=== PATIENT | female | born 1950 | race Caucasian/White ===

== ENCOUNTER 2019-04-02 12:34 | Inpatient (IN) | payer OTHER, MEDICARE ==
[~2019-04-02] VITALS: Ht 160 cm; Wt 58.7 kg
--- NOTE | ~2019-04-02 | D ---
[facility] [place] [address] DISCHARGE SUMMARY Name: DEBBIE SETHI Room #: 52-A [facility] IN M.R.#: [id number] Admission: 04/02/19 Attend Phys: Zuhair Lima DO Discharge: 04/12/19 Date of : 52 Report #: [id number] THIS REPORT FOR: //name// CC: Zuhair Lima Cedric Box DATE OF SERVICE: 04/12/2019 INPATIENT PSYCHIATRIC DISCHARGE SUMMARY ATTENDING PHYSICIAN: Zuhair Lima DO. HOME SUPPORT WORKER AT THE TIME OF DISCHARGE: Renzo Garnett MD DISCHARGE DIAGNOSES: Major neurocognitive disorder, most likely due to Alzheimer's disease with behavioral disturbance, improved. Other comorbidities, the patient has chronic low back pain, hypertension, hyperlipidemia, hypothyroidism, chronic tobacco use. Discharged to [facility] for memory care. Psychiatric and medical care to be provided by the receiving facility. ACTIVITY LEVEL: As tolerated. The patient requires 24/7 assistance and supervision due to her dementia. LABORATORY DATA ON THIS ADMISSION: As follows: CBC on 04/02/2019 was within normal limits except for platelet count slightly high at 48. Chemistries this admission on 04/03/2019 included B12 of 395, vitamin D 42.6. TSH ____. Folate 14.1. IMAGING: Done this admission ____ CT done on . Findings were significant for chronic ischemic changes. Chest x-ray done on showed a right basilar nodular opacity. The patient started this admission on memantine. We did initiate titration, elected to bump it up to 10 mg twice a day. OTHER DISCHARGE MEDICATIONS: Include vitamin B12 500 mcg p.o. daily, fenofibrate 160 mg p.o. daily, vitamin D 5000 International Units a day, Protonix 40 mg daily, levothyroxine 50 mcg daily, atorvastatin 40 mg p.o. at bedtime. Otherwise, no other scheduled medications. REASON FOR ADMISSION: Back on 04/02/2019 was as follows: I had received the patient from the Emergency Room at [facility]. Apparently, he presented to the ED requesting medical clearance for psychiatric admission. Increased confusion has been noted, medical noncompliance. He had seen by PCP who recommended Geriatric Psychiatry admission. [address] [address] DISCHARGE SUMMARY Name: DEBBIE SETHI Room #: 521A-A [facility] IN ..#: [id number] Admission: 04/02/19 Attend Phys: Zuhair Lima DO Discharge: 04/12/19 Date of : 52 Report #: [id number] HOSPITAL COURSE: The patient was admitted to Geriatric Psychiatry care unit. The patient showed some initial resistance to the program; however, ____ but clearly had evidence of cognitive dysfunction. Her SLUMS score was an 8/30. We had a couple of family meetings during the admission. considered placement. CONDITION AT DISCHARGE: Stable, not suicidal, not homicidal. MENTAL STATUS EXAMINATION: VITAL SIGNS: ____, pulse rate of 70, respirations 19, BP 146/76, O2 sat 95%. MUSCULOSKELETAL: Normal gait and station. MENTAL STATUS EXAMINATION: This is a well-developed, well-nourished female appearing stated age. Attention limited. Concentration limited. Speech is normal rate. Thought processes linear and goal directed. Thought content focused on where she is going next, ____ there was some confusion ____ is involved and I told the patient the real name of the [facility] and somehow she thought she was ____ before she was sent from [facility]. My social director ____ the patient, but I certainly do not have record ____ as it is very important she had consistent housing and programming in memory care environment. Prognosis for this patient is guarded. ____. Attention intact. Concentration limited. Speech is normal rate. Thought process is linear and goal directed. Thought content focused on discharge, no psychomotor agitation, no ____ retardation. Mood and affect congruent, constricted. By: 225 Zuhair Lima, DO /nt
[~2019-04-02 12:34] MED LIST: ALLEGRA-D 12 H1 EAC1 PO; AMITRIPTYLINE PO; AMLODIPINE BESYL5 MG PO; COLACE 100 MG100 MG PO; FAMCICLOVIR250 MG PO; FENOFIBRATE130 MG PO; GAVILAX17 GM PO; LASIX 20 MG TAB20 MG PO; MOM PO; NEXIUM40 MG PO; NICOTINE TRANSD14 M1 TRANSDERM; NORCO 10-325 T1 EACH PO; NYSTATIN 1100000 U/M SW&SWALLOW; OXYCONTIN40 MG PO; PRAVACHOL80 MG PO; PREDNISONE 10 M10 M1; PREMARIN0.625 MG PO; PROVIGIL 200 M200 M1 PO; SENNA PO; SENOKOT-S1 TA1 PO; ZOLOFT 50 MG TA50 M1 PO; ZOLOFT100 MG PO
[2019-04-02 12:36] VITALS: BP 155/79
[2019-04-02 13:14] LABS: URINE BILIRUBIN NEGATIVE (Negative); URINE BLOOD NEGATIVE (Negative); URINE CLARITY CLEAR; URINE COLOR YELLOW; URINE GLUCOSE-RANDOM* NEGATIVE (Negative); URINE KETONES NEGATIVE (Negative); URINE LEUKOCYTES-REFLEX TRACE (Negative); URINE NITRITE-REFLEX NEGATIVE (Negative); URINE PROTEIN (DIPSTICK) NEGATIVE (Negative); URINE SPECIFIC GRAVITY 1.015 (1.005-1.035); URINE UROBILINOGEN 0.2 E.U./dl (0.2-1.0)
[2019-04-02 13:19] LABS: ABSOLUTE NEUTROPHILS 6.4 thou/uL (1.4-8.2); EOSINOPHILS 1.1 % (0.0-3.0); HEMATOCRIT 40.3 % (37.0-47.0); HEMOGLOBIN 12.7 gm/dL (12.0-15.0); LYMPHOCYTES 31.3 % (24.0-44.0); MCH 23.4 pg (26.0-34.0); MCHC 31.4 g/dL (28.0-37.0); MCV 74.5 fL (80.0-100.0); MONOCYTES 3.8 % (1.0-8.0); PLATELET COUNT 488 thou/uL (150-400); POLYS 62.8 % (36.0-66.0); RBC 5.41 mil/uL (4.20-5.00); RDW 18.1 % (10.5-14.5); WBC 10.2 thou/uL (4.0-11.0)
[2019-04-02 13:33] LABS: CALCIUM 10.6 mg/dL (8.5-10.1); CREATININE 0.9 mg/dL (0.6-1.0); POTASSIUM 3.6 mmol/L (3.5-5.1)
[2019-04-02 13:40] LABS: DIRECT BILIRUBIN 0.1 mg/dL (<0.1-0.2); TOTAL BILIRUBIN 0.4 mg/dL (<0.1-1.0); TOTAL PROTEIN 9.6 g/dL (6.4-8.2)
[2019-04-02 14:26] LABS: ANISOCYTOSIS 1+; HYPOCHROMASIA 1+; OVALOCYTES OCCASIONAL
[2019-04-02 14:33] VITALS: BP 163/73
[2019-04-02 15:35] VITALS: BP 127/60
--- NOTE | 2019-04-02 15:36 | NUR ---
68 YEAR OLD FEMALE ADMITTED VIA CART FROM ER-ACCOMPNIED BY DAUGHTER MELISSA SETHI. TO ER TODAY WITH REPORTED INCREASED AGITATION AND ERRATIC BEHAVIOR AT HOME PER DAUGHTER REPORT. DAUGHTER LIVES NEXT DOOR TO PT AND APPROX 1 MTH AGO BECAME SUSPICOUS OF DAUGHTER,MOOD SWINGS AND PARANOID THINKING PEOPLE ARE SPYING ON HER. RECENTLY PLACED IN FACILITY WITH MEDICAL ISSUES SO PT IS UNUSED TO LIVING ALONS. DAUGHTER AND OP MD SUSPECT PT OVERTAKING HYDROCODNE AND DAUGHTER HAS BEEN GIVING MEDS FOR APPROX 2-3 WEEKS. PT DOES REPORT BACK PAIN RATED A 10 ON 1-10 SCALE ON ADMIT. ORIENTED TO PERSON,PLACE NO TO DATE-VERY TEARFUL ON DAUGHTERS DEPARTURE AND HAS LIMITED INSIGHT INTO FACTORS LEADING TO ADMIT REPEATING "I DON'T UNDERSTAND WHY I'M HERE-I DON'T KNOW WHAT IS GOING ON.......' NO SKIN BREAKDOWN NOTED. GAIT STEADY WITHOUT ASSISTIVE DEVICES
[2019-04-02] MEDS ORDERED: BYSTOLIC10 MG PO (15:48)
[2019-04-02] MEDS ORDERED: LEVO-T50 MCG PO (15:49)
[2019-04-02] MEDS ORDERED: LASIX 40 MG TAB40 MG PO (15:50)
[2019-04-02] MEDS ORDERED: XANAX 0.5 MG0.5 M1 PO (15:51)
[2019-04-02] MEDS ORDERED: PRAVACHOL40 MG PO (15:53)
[2019-04-02] MEDS ORDERED: OMEPRAZOLE40 MG PO (15:54)
[2019-04-02] MEDS ORDERED: ERGOCAL2500 UNIT PO (15:57)
[2019-04-02 19:33] VITALS: BP 102/48
--- NOTE | 2019-04-03 01:41 | NUR ---
ASSESSMENT: PT REMAIN ALERT AND ORIENT TIMES THREE. FOLLOWING POC. STATE THAT NARCO IS HELPING HER CHRONIC BACK PAIN. HAS NOT CALLED FOR PAIN MEDS UP TO THIS POINT. VSS, AFEBRILE. UP WITH A STEADY GAIT. NO S/S OF PARANOA PRESENT. SLOW PROGRESS TOWARDS DC GOALS, WILL CONTINUE TO MONITOR.
[2019-04-03 02:20] VITALS: BP 116/58
--- NOTE | 2019-04-03 03:01 | NUR ---
ASSESSMENT: AT APPROXIMARELY 0211 PT WOKE UP STATING THAT SHE FELT NAUSEOUS AND REALLY DIZZY. PT ALSO C/O BACK PAIN. VSS, BS WAS 114 SATS WERE 93%. MARTA SANTIAGO WAS NOTIFIED. ORDERS GIVEN. AFTER ABOUT 45 MINS PT BEGAN TO FEEL BETTER AND THE DIZZINESS WAS BEGINNING TO SUBSIDE. PT IS ASLEEP AT 0330. UA PENDING. LABS PENDING. WILL CONTINUE TO MONITOR.
--- NOTE | 2019-04-03 08:48 | NUR ---
Sw spoke with [facility] intake assessment and d/c plans. She reported that her father lives in her home right now because he has stage 4 cancer and needs more help. Pt has been living alone and now the home is unliveable for at least the next 3-4 months. [facility] has a construction business and they will be doing the repairs. But they are lookignf or guidance regarding the safety of pt return to independent living. Set up a family meeting for 04/06/19 at 11;45 am. Pt has not been completing her ADL's and has been non compliant with recomedations
[2019-04-03 09:12] VITALS: BP 108/72
[2019-04-03 10:48] VITALS: BP 108/72
--- NOTE | 2019-04-03 11:02 | NUR ---
5103 Report received from overnight shift, patient this morning complained of being dizzy. I used a wheel care for transport to day room for breakfast, patient took medication without incidence. Patient quiet cooperative, not interacting with other patient's. Dr. Lima wanted [facility] blood pressures to monitor dizziness. Will continue to monitor patient.
[2019-04-03 14:02] LABS: FOLIC ACID 14.1 ng/mL (8.6-58.9)
[2019-04-03 16:34] LABS: AMP/METHAMP Negative (Negative); BARBITURATES Negative (Negative); BENZODIAZEPINES Negative (Negative); COCAINE Negative (Negative); METHADONE Negative (Negative); OPIATES POSITIVE (Negative); PCP Negative (Negative)
[2019-04-03 19:41] VITALS: BP 104/49
[2019-04-04 02:27] VITALS: BP 104/49
--- NOTE | 2019-04-04 03:52 | NUR ---
PT QUIET AND ON THE EDGE OF THE GROUP. INTERACTING WITH SELECT FEMALE PEER. TOOK HS MED AFTER SNACK AND WENT TO BED. CONFUSED TO WHERE HER ROOM WAS, AND NEEDED REMINDER, AND WAS ESCORTED TO ROOM. HAS SLEPT WELL THROUGH THE NIGHT.
--- NOTE | 2019-04-04 08:00 | NUR ---
PT SITTING IN ROOM. PT SEEMS UPSET. PT DIDN'T KNOW WHY SHE IS HERE. THIS ENGINEER GAS PUMPING STATION STATED THAT SHE HAD AN ALTERATION WITH HER DAUGHTER. PT STATED WHAT DID SHE DO, ASKED PT IF HER WAS SICK, PT STATED NO HE WASN'T AND SHE WANTED TO BE ABLE TO TALK TO HIM.
[2019-04-04 08:06] VITALS: BP 128/66; BP 138/80
[2019-04-04 08:10] VITALS: BP 128/66
--- NOTE | 2019-04-04 11:47 | NUR ---
ADM HYDROCODONE 5MG FOR BACK PAIN OF 8 ON 1-10 SCALE, PT IN ROOM.
--- NOTE | 2019-04-04 16:20 | NUR ---
PT WANTING TO HAVE NORCO, TOLD PT SHE HAD ALREADY TODAY. NOT TIL 6 HRS. PT STATED HER BACK IS HURTING.
--- NOTE | 2019-04-04 18:20 | NUR ---
PT RECIEVED HYDROCODONE 5MG PO FOR COMPLAINTS OF BACK PAIN. PT SITTING OUT IN DINNING ROOM SOCIALIZING WITH STAFF.
[2019-04-04 20:00] VITALS: BP 147/60
[2019-04-04 20:08] LABS: SYPHILIS AB Non Reactive (Non Reactive)
[2019-04-04 21:45] VITALS: BP 147/60
--- NOTE | 2019-04-04 23:01 | NUR ---
PATIENT WAS UP IN DINING ROOM [facility]. SHE TOOK HER HS MEDS WHOLE. SHE ASKED AT 1930 WHEN SHE COULD HAVE HER NEXT PAIN PILL. SHE HAD JUST HAD HYDROCODONE AT 1830. SHE STATES SHE HAS PAIN IN LOWER BACK BUT IS GRADUALLY GOING AWAY. PATIENT WENT TO HER ROOM FOR AWHILE AND CAME BACK OUT AROUND 2129 AND WAS WANTING SOMETHING TO EAT. SHE HAD HAD AN HS SNACK BUT I ALLOWED HER MILK AND MICHA CRACKERS. SHE WANTED ICECREAM. I GAVE HER HS MED WITH MILK. PATIENT THANKED THIS NURSE AND WENT TO BED AFTER EATING. SHE HAS BEEN CALM AND VISITS WITH PATIENT'S IF THEY INITIATE FIRST. SHE LOOKS SAD AND HAS A FLAT EFFECT. PATIENT AMBULATES WELL ON HER OWN. NEW ORDER FOR B12 PO TO START IN AM D/T LOW B12. HER SLUMS TEST TODAY SHE SCORED 8/30 AND SHOWS SIGNIFICANT DEMENTIA. DR FERRO SAYS SHE WILL NOW NEED 24/7 CARE OUTSIDE OF HOSPITAL. PATIENT HAS LIMITED SHORT TERM MEMORY AND GETS CONFUSED AT TIMES. SHE IS SLEEPING AT THIS TIME. BED IN LOW POSITION. WILL CONTINUE TO MONITOR.
[2019-04-05 08:00] VITALS: BP 134/75
--- NOTE | 2019-04-05 15:46 | NUR ---
ADM HYDROCODONE 5MG PO FOR PAIN TO BACK OF 7 ON 1-10 SCALE.
--- NOTE | 2019-04-05 15:52 | NUR ---
LUIS attended a family meeting, with pt's , pt's daughter and DPOA Marianela, and Marianela's . Pt was told at the meeting by the psych doctor that it is not safe for her to return home, and that she will need to go to a facility since she at this time does not at this time have anyone who can stay with her 14/11. Also her has many health issues and may benefit from placement. During the meeting Marianela passed a note to LUIS that says her father is "afraid of her." LUIS passed this note to the psych doctor. The psych doctor explained pt's diagnosis again to her and her family. Pt believes that if she does well, she will get drastically better enough to go home and live like her and her were before. SW explained how the diagnosis requires some changes. Reluctantly pt accepted the situation. Pt's daughter Marianela showed her the DPOA document they had and that it had yet to be notarized; it was completed in the state of [place] and requires a notarization or 2 witnesses. LUIS asked pt questions to orient her. She could not tell SW where she was or what a DPOA means even after SW explained it to her. LUIS explained to pt's daughter Marianela that she is unable to orient pt enough for her to sign DPOA doc and notarize it. Marianela understood and said she will be moving forward with guardianship. It was decided during the meeting that pt will go to respite so she can discharge. Marianela gave LUIS three facilities of her choice; [facility], and [facility]. LUIS faxed a referral to all 3 facilities asking for respite. LUIS team will continue to follow pt during her stay.
--- NOTE | 2019-04-05 17:26 | NUR ---
ASSUMED CARE AT 0715 ON 04/05/19. DEBBIE SITTING IN DAYROOM ON COUCH QUIETLY WATCHING TV. PATIENT ASKS WHEN SHE WILL BE LEAVING-PATIENT INFORMED OF FAMILY MEETING AND THAT IT WILL BE DISCUSSED IN THE MEETING. PATIENT SMILES AND WALKS AWAY. PATIENT WATCHING TV. COMPLAINS OF PAIN RATES 8 ON NUMERIC PAIN SCALE. HYDROCODONE GIVEN AT 740AM. 830AM REASSESSED PAIN PATIENT RATES PAIN AT A 6 AND STATES PAIN MED HELPED.
--- NOTE | 2019-04-05 17:44 | NUR ---
AT 1730 PATIENT SITTING ON COUCH WATCHING TV WITH NO COMPLAINTS. DENIES NEEDS. ATE 100% OF DINNER.
[2019-04-05 19:27] VITALS: BP 140/75
--- NOTE | 2019-04-06 04:53 | NUR ---
ASSUMED CARE OF PT FOR ACCOUNT SERVICES SPECIALIST.SHE HAS BEEN UP IN DAYROOM WITH PEERS MUCH OF SHIFT. ASKING FOR HYDROCODONE PRIOR TO DUE TIME TWICE THIS SHIFT FOR C/O BACK PAIN. PLEASANT AND COOPERATIVE WITH CARES AND ASSESSMENT.
[2019-04-06 09:21] VITALS: BP 130/68
[2019-04-06 09:46] VITALS: BP 130/68
--- NOTE | 2019-04-06 10:06 | NUR ---
PATIENT HAS BEEN UP AND OUT ON THE UNIT IN THE DAY ROOM, APPETITE GOOD, CONSUMED 100% BREAKFAST, PATIENT TOOK ALL MORNING MEDICATIO WHOLE WITHOUT DIFFICULTY. PATIENT DENIES SUICIDAL/HOMICIDAL IDEATION. PATIENT C/O BACK PAIN, RATED AT 8/10, TYLENOL OFFERED IT WAS NOT TIME FOR PATIENT TO HAVE HYDROCODONE. PATIENT DECLINED AND STATES "I WILL WAIT FOR THE HYDROCODONE". PATIENT REFUSED TO PARTICIPATE IN MORNING GROUP THERAPY. AFFECT IS FLAT, MOOD IS DEPRESSED. PATIENT IS FORGETFUL, AND CONFUSED AT TIMES. CURRENTLY SITTING IN DAYROOM WATCHING TV, WILL MONITOR FOR SAFETY.
--- NOTE | 2019-04-06 13:39 | NUR ---
SW received a call yesterday afternoon stating that [facility] just filled their last bed and would have to deny the referral. SW team will continue to follow pt during her stay.
--- NOTE | 2019-04-06 13:41 | NUR ---
SW received a call from pt's daughter Marianela stating that pt's really likes [facility] and would like to go with that choice. SW team will continue to follow pt during her stay.
--- NOTE | 2019-04-06 14:21 | NUR ---
SHOWERED ASSISTED BY MUSIC DEPARTMENT CHAIR.
[2019-04-06 19:11] VITALS: BP 137/71
--- NOTE | 2019-04-06 22:27 | H ---
[facility] [place] [address] [address] [place] [address] HISTORY AND PHYSICAL Name: DEBBIE SETHI Room #: 521A-A ADM IN M.R.#: [id number] Admission: 04/02/19 Attend Phys: Zuhair Lima DO Discharge: Date of : 52 Report #: [id number] THIS REPORT FOR: //name// CC: Zuhair Negrete DATE OF SERVICE: 04/03/2019 INPATIENT PSYCHIATRIC EVALUATION ATTENDING PHYSICIAN: Zuhair Lima DO. [employer] [place]: Queenie Davison with attending Joe Pathak MD. REASON FOR ADMISSION: Brought by daughter and she was seen medically in the Emergency Room with increased confusion, medication noncompliance. The patient also had been refusing. HISTORY OF PRESENT ILLNESS: A 68-year-old female who presented to the ED. Daughter brings her in. Daughter's name is Marianela. Increased confusion, medication noncompliance, seen by Dr. Rutledge I believe. Doc stated Geriatric psych admission was necessary. The patient gets dizzy frequently. Daughter believes she may have had a fall in the last few days secondary to bruise on her hand. Reportedly, the patient was living with her daughter. The patient's has cancer that is advancing. PAST MEDICAL HISTORY: Includes fibromyalgia. PSYCHIATRIC REVIEW OF SYSTEMS: Denied overt hallucinations. MEDICAL REVIEW OF SYSTEMS: Denied urinary symptoms, vision changes, fever, loss of consciousness. She sees Dr. Negrete, public health doctor. PAST SURGICAL HISTORY: Hysterectomy, kidney stones, three childbirths. MEDICAL PROBLEMS: Migraines, hyperlipidemia, fibromyalgia, also another medical/surgical thing of interest, 01/18/2013, pleural effusions and right-sided chest tube placed to evacuate the effusions. HOME MEDICATIONS: Included ergocalciferol, omeprazole, pravastatin, alprazolam, furosemide, levothyroxine, nebivolol, hydrocodone with acetaminophen, sertraline, nystatin, nicotine, magnesium hydroxide, docusate, oxycodone, fenofibrate. ALLERGIES: LISINOPRIL and SULFA. [facility] [address] [place] [address] HISTORY AND PHYSICAL Name: DEBBIE SETHI Room #: 521A-A ADM IN M.R.#: [id number] Admission: 04/02/19 Attend Phys: Zuhair Lima DO Discharge: Date of : 52 Report #: [id number] SOCIAL HISTORY: Long cigarette use, unclear exact duration. Denied alcohol, denied recreational drugs. REVIEW OF SYSTEMS: From the Emergency Room as follows: CONSTITUTIONAL: Negative for fever or chills. EYES: Negative for eye pain or visual change. HENT: Negative for rhinorrhea or sore throat. RESPIRATORY: Negative for cough or shortness of breath. CARDIOVASCULAR: Negative for chest pain or palpitations. GASTROINTESTINAL: Negative for abdominal pain. No nausea, vomiting or diarrhea. GENITOURINARY: Negative for burning, urgency, frequency or hematuria. MUSCULOSKELETAL: Negative for back pain or muscle pain. SKIN: Negative for any rashes. NEUROLOGICAL: Negative for numbness, tingling or weakness. Psychiatric review of systems as above. PHYSICAL EXAMINATION: VITAL SIGNS: Weight 61.235 kilos, BMI is 23.9. Temperature 36.6, pulse 81, respirations 16, BP 108/72, O2 sat 98%. MUSCULOSKELETAL: Normal gait and station. HEENT: Wearing glasses but disheveled. LABORATORY DATA: Done so far: CBC within normal limits except MCV of 74.5, platelet count 488. Chemistries from yesterday: Sodium 136, potassium 3.6, chloride 98, bicarbonate 26, BUN 12, creatinine 0.9, glucose 113, EGFR 62, AST 23, ALT 19, alkaline phosphatase 85, total protein 9.6, calcium was high at 10.6 and albumin 4.0. I have ordered B12, folate, syphilis antibody, 25-hydroxy, cholecalciferol and HIV as part of dementia screen as well as a head CT. MENTAL STATUS EXAMINATION: This is a well-developed, slightly disheveled female, appearing at least stated age. Attention fair. Concentration fair. Speech is normal in rate, volume and tone. Thought process is linear and goal oriented. Thought content focused on present. No psychomotor agitation. No psychomotor retardation. Denied SI or HI. Denied hopelessness, helplessness. Denied auditory, visual or tactile hallucinations. Memory not formally tested on purpose due to therapeutic alliance before I give her tedious task. Insight limited. Judgment limited. Fund of knowledge no greater than average. FORMULATION: A 68-year-old female brought in for both cognitive evaluation, concerning behaviors, concerning for conversion to a dementia syndrome. [facility] [address] [place] [address] HISTORY AND PHYSICAL Name: DEBBIE SETHI Room #: 521A-A ADM IN ..#: [id number] Admission: 04/02/19 Attend Phys: Zuhair Lima DO Discharge: Date of : 52 Report #: [id number] DIAGNOSES: At this time, major neurocognitive disorder, likely officially unspecified cognitive impairment at this point, number of medical comorbidities including hypothyroidism, possible vertigo. I just noticed for some reason amitriptyline was ordered. I am going to discontinue that immediately as it is problematic med for a number of reasons. So, regarding current therapy we will continue atorvastatin 40 mg at bedtime, fenofibrate 160 mg p.o. daily, hydrocodone 5/325 q. 6 hours p.r.n., levothyroxine 50 mcg daily, meclizine 25 mg t.i.d. for nausea, nebivolol 5 mg daily for hypertension, pantoprazole 40 mg p.o. daily for GERD, amitriptyline was discontinued. Evaluate, stabilize, obtain collateral. ESTIMATED LENGTH OF STAY: 10-14 days. Time spent on the phone call, review of records, coordination of care for this patient is at least 45 minutes. STRENGTHS: She is insured, supportive family. WEAKNESSES: Advanced age, likely neurocognitive disorder. <ELECTRONICALLY SIGNED> By: Zuhair Lima DO 04/06/19 2227 [id number] Zuhair Lima DO /nt
--- NOTE | 2019-04-07 03:01 | NUR ---
ASSUMED CARE OF THIS CLIENT FOR MIXER FOAM RUBBER. SHE WAS SITTING IN DAYROOM CHATTING WITH A PEER, MODERATELY BRIGHT AFFECT. ON BEING GREETED BY THIS NURSE, FACIAL EXPRESSION CHANGE SHE BEGAN TO COMPLAIN IF PAIN, AND STATE THE SHE FELT IT WAS UNFAIR THAT HER HYDROCODONE ORDERS WERE CHANGED. PLEASANT AND COOPERATIVE WITH ASSESSMENT PROCESS. TOOK SCHEDULED MEDS WHOLE, REFUSING TYLENOL, STATING IT DOESN'T HELP. OTHER THAN PAIN, NO C/O. NO APPARENT DISTRESS. APPEARS TO BE SLEEPING AT THIS TIME.
--- NOTE | 2019-04-07 08:04 | NUR ---
Date of Admission: 04/02/19 Date of Activity Therapy Assessment:04/05/2019 Activity Goal:Two groups per day Initial Goal:Pt will participate in one recreation therapy group per day to aid in the development of positive coping skills and tolerance towards moments of frustration. Weekly progress towards goal:Did not achieve Group participation level:Moderate Behaviors observed:Pt came to most groups and participated well. Pt showed no agression or agitation in groups. Pt showed positive social interactions with peers and staff. Plan: No change towards goal
[2019-04-07 08:38] VITALS: BP 140/71
--- NOTE | 2019-04-07 08:46 | NUR ---
0642 REPORT RECEIVED FROM OVERNIGHT SHIFT, PATIENT LOOKS BRIGHTER CALM COOPERATIVE. PATIENT TOOK MEDICATION AND ATE BREAKFAST WITHOUT INCIDENCE. PATIENT did not complain of pain this morning. Will continue to monitor patient for safety.
[2019-04-07 09:06] VITALS: BP 160/71
[2019-04-07 19:16] VITALS: BP 156/65
[2019-04-07 21:46] VITALS: BP 156/65
--- NOTE | 2019-04-07 23:54 | NUR ---
PATIENT WAS UP IN DINING ROOM AT A TABLE BY HERSELF XENA WHEN I BEGAN SHIFT AT 1900. SHE WAS TEARY AND BEGAN CRYING WHEN I ASKED WHAT WAS WRONG? SHE STATES SHE FEELS VERY CONFUSED. SHE THOUGHT SHE IS TO GO HOME TOMORROW BUT THEN HEARD THERE WAS TO BE A FAMILY MEETING AND SHE SAYS THE DR NEVER TALKS WITH HER ABOUT ANYTHING. SHE JUST WANTS TO KNOW WHAT IS GOING ON. THEN SHE WENT ON ABOUT HER BACK PAIN AND WHEN SHE COULD HAVE HER NEXT HYDROCODONE. I TOLD HER IT WAS STILL A COUPLE OF HOURS BEFORE SHE COULD HAVE THE HYDROCODONE BUT I WOULD GET HER SOME TYLENOL. SHE TOOK TYLENOL 650MG PO AT AROUND 1945. WHEN SHE WENT BACK TO HER ROOM I ASSESSED HER PAIN SOME MORE AND TRIED TO MASSAGE THE BACK. SHE WAS VERY TENSE. TALKED 1:1 WITH HER ABOUT RELAXATION AND DECREASING HER STRESSFUL THOUGHTS. PATIENT AGREED THAT SHE WAS TENSE FROM BEING STRESSED ALSO AND TRIED TO RELAX A BIT WITHOUT RELIEF. ADJUSTED PATIENT'S BED FOR HER. PATIENT ASKED SEVERAL TIMES WITHIN HALF AN HOUR EACH ABOUT GETTING HER NIGHT TIME MEDS. I KEPT TELLING HER THAT SHE HAD HAD THEM ALREADY. SHE STATES THAT SHE DID NOT GET ANYTHING FOR PAIN. AGAIN, I TOLD HER THAT SHE HAD BEEN GIVEN TYLENOL BECAUSED IT WAS TOO EARLY TO GET HER HYDROCODONE. PATIENT WOULD GO BACK TO HER ROOM EACH TIME. SHE THEN CAME OUT AROUND 2100 AND WATCHED TV. SHE LOOKED LIKE SHE WAS HURTING. AT 2140 I ASKED PATIENT TO GO BACK TO HER ROOM AND I WOULD MEET HER IN THERE. SHE TOOK HER HYDROCODONE PILLS AND I APPLIED BENGAY CREAM TO HER BACK. PATIENT SMILED AND SAID SHE THOUGHT SHE COULD SLEEP THEN. SHE WENT BACK TO SLEEP. SHE GOT BACK UP ABOUT 20 MINUTES LATER TO SIT IN DINING ROOM. SHE WENT BACK TO BED AROUND 2345. WILL CONTINUE TO MONITOR.
--- NOTE | 2019-04-08 02:24 | NUR ---
PATIENT BACK UP AND SITTING IN THE DINING ROOM. SHE STATES SHE CAN'T SLEEP. PATIENT NOT C/O PAIN. PATIENT LOOKS RELAXED AND IS SMILING AND APPEARS CONTENT. WILL CONTINUE TO MONITOR.
--- NOTE | 2019-04-08 04:30 | NUR ---
PATIENT SITTING UP IN DINING ROOM. SHE IS DRINKING WATER. SHE STATES SHE CAN'T SLEEP. PATIENT ALERT AND ORIENTED X 2-3. SHE IS PLEASANT AND SMILING. DENIES PAIN. WILL CONTINUE TO MONITOR.
[2019-04-08 05:47] VITALS: BP 110/45
[2019-04-08 07:54] VITALS: BP 140/66
--- NOTE | 2019-04-08 10:35 | NUR ---
LUIS called [facility] [phone] and (f) [phone] and confimred the referral. LUIS sent the referral packet and confimed that pt will be assessed today in PM by [facility]
--- NOTE | 2019-04-08 15:18 | NUR ---
PATIENT HAS BEEN PLEASANT AND AGREEABLE. SOCIAL ENGAGING WITH PEERS AND PARTICIPATING IN GROUP ACTIVITIES AND CONVERSATIONS. DENIES ANY S/I - DID STATE HAD BACK ACHE AND GIVEN HYDROCODONE TO RELIEVE DISCOMFORT. PATIENT AMBULATORY AND ATTENDS TO OWN NEEDS. FORGETFUL AT TIMES BUT EASILY REDIRECTED. HANDLES OWN ADL'S WITH STAND BY ASSIST NEARBY IF NEEDED.
[2019-04-08 19:52] VITALS: BP 159/69
--- NOTE | 2019-04-09 03:30 | NUR ---
Care assumed of patient at 1915: Patient seated in dayroom at start of shift. Patient interacting well with staff and peers. Patient watching [place] shows and talking with other peers. Smiling, relaxed. Patient alert and oriented x4 with occasional forgetfulness observed. Patient denies SI/HI/AH/VH. No s/s of paranoia or delusional behaviors observed. Reports pain rated 8/10 to lower back. Patient provided PRN Hydrocodone. Patient then took a warm shower to attempt to reduce pain. Patient reports that medication was helpful in reducing pain, but not the shower. Patient had difficulty falling asleep this shift. Patient stated that her pain is giving her difficulty to relax. Patient took HS medication whole without difficulty. Ate 100% HS snack. Denies depression or anxiety. Patient has been able to rest quietly once she was able to fall asleep. Patient calm, pleasant and cooperative this evening.
[2019-04-09 08:59] VITALS: BP 124/61
--- NOTE | 2019-04-09 10:27 | NUR ---
LUIS received a call from Marianela (pt's sister and DPOA) stating that Leidy with [facility] told her that her mom takes amtriptyline. She also reported that Leidy said her mom needs to be on an anti-depressant. LUIS told Marianela she will contact Leidy. She asked that a med list be emailed to [email or web address] LUIS contacted Leidy who said a nurse said pt was on that med. LUIS clarified and said no she isnt. Leidy also had concern about pt having any behavioral issues; she said their unit is for dementia and memory care but not for behaviors. LUIS again clarified that pt's behaviors are reserved for her ; pt has not been combative with staff and cares and only seems to argue with her . She said okay and asked that a med list and updates be faxed to [phone]. LUIS faxed and emailed requested documents. LUIS provided an update to Marianela. LUIS team will continue to follow pt during her stay.
--- NOTE | 2019-04-09 18:15 | NUR ---
Up in dining room most of day without s/o distress. Calm and cooperative. States her concern today is leg spasms that occur nightly for several seconds since admission. States Alejandro Basilio was applied to legs last night which helped. Also had mid and lower back pain. Ranks pain at a 6 this am. Later in afternoon she ranked it an 8. Some facial grimacing with pain. Denies SI/HI. Compliant with meds. Breath sounds clear t/o, bilaterally equal. Regular HR auscultated. Color pink with brisk capillary refill and +2/+4 pulses. Active bowel sounds over soft, rounded abdomen. Independent with voiding. Ambulates without difficulty. Spent most of day participating in groups and visiting with peers. 1640 Hydrocodone 2 tabs given for back pain. Ranks it an 8/10. On reassessment states pain improving but still an 8. Asking to use phone without s/o distress. peers 182 Up ambulating in unit without s/o distress.
[2019-04-09 19:47] VITALS: BP 145/63
--- NOTE | 2019-04-10 02:01 | NUR ---
ASSUMED CARE OF PATIENT FOR NIGHT. SHE WAS SITTING TALKING TO PEERS WITH BRIGHT AFFECT. DID STATE PAIN SEEMS MORE WELL MANAGED WITH NEW REGIMEN OF MEDS. TOLD HE SHE COULD HAVE MORE PAIN MEDS NEAR 2200, BUT SHE DID NOT REQUEST THEM. PLEASANT AND COOPERATIVE WITH ASSESSMENT PROCESS. NO FURTHER C/O. WILL CONTINUE TO MONITOR
[2019-04-10 07:59] VITALS: BP 111/68
--- NOTE | 2019-04-10 14:06 | NUR ---
LUIS received a call from [facility] stating they have accepted pt. LUIS set up d/c for Thursday 04/12 @ 1230 pm. of asked that d/c paperwork be sent that morning before discharge. LUIS provided an update to pt and her . SW team will continue to follow pt during her stay.
--- NOTE | 2019-04-10 16:16 | NUR ---
VISIBLE IN DAYROOM AND GROUP ROOM WITH PEERS THROUGHOUT SHIFT-INTERACTS WITH FEMALE PEER AND IS NOTED TO HAVE SPONTANEOUS SMILING/EXPRESSION/VERBALIZATION. APPEITIE GOOD-GAIT STEADY WITHOUT ASSISTVE DEVICES. DURING 1;1 REPORTS ANXIETY LEVEL "SAKINA HIGH JUST BECauSE I AM HERE" DOES REPORT SEVERE BACK PAIN TO STAFF ENGINEER AT APPROX [id number] APPROACHED BY RN RUBBING LOW BACK,GRIMACING AND STATING LOW BACK PAIN IS RATED A 10 ON 1-10 SCALE. NORCO 5/325 2 TABS PO PRN AT APPROX 1500 FOR ABOVE REPORTED-DOES REPORT DECREASE IN PAIN TO 5 RATING ON REASSESSMENT
[2019-04-10 19:36] VITALS: BP 139/68
[2019-04-11 02:09] VITALS: BP 139/68
--- NOTE | 2019-04-11 05:59 | NUR ---
slept 7.4 houur overnight.
[2019-04-11 09:32] VITALS: BP 123/65
--- NOTE | 2019-04-11 14:25 | NUR ---
AT 0715 ASSUMED CARE OF PATIENT ON 04/11/19. AT 0720 PATIENT SITTING IN DAYROOM WATCHING TV. QUIETLY WAITING FOR BREAKFAST TO ARRIVE. WHEN ASKED ABOUT PAIN STATES "PAIN IS ABOUT A 6 LIKE IT USUALLY IS" PATIENT DENIES SI/HI AND AVH. SITS WITH OTHER PATIENTS DURING BREAKFAST AND COMMUNICATES WITH OTHER APPROPRIATLY.
--- NOTE | 2019-04-11 19:12 | NUR ---
Ate dinner. Now conversing with peers without s/o distress.
[2019-04-11 20:17] VITALS: BP 146/76
--- NOTE | 2019-04-11 21:30 | NUR ---
ASSUMED CARE ON 04/11/19 AT ABOUT 19:15. SEATED ON THE SOFA IN THE DAY ROOM WATCHING TV AND HAVING CONVERSATION WITH PEERS. REPORTS PAIN 7/10, [id number] PO PROVIDED FOR BREAKTHRU PAIN. PROVIDED PO MEDS WHOLE WITH WATER. AMBULATING FROM DAY ROOM TO BEDROOM AND BACK.
[2019-04-12 00:21] VITALS: BP 146/76
[2019-04-12 00:24] VITALS: BP 146/76
--- NOTE | 2019-04-12 06:49 | NUR ---
SLEPT 6.8 HOURS
[2019-04-12] MEDS ORDERED: FENOFIBRATE160 MG PO (11:14)
[2019-04-12] MEDS ORDERED: LIPITOR40 MG PO (11:16)
--- NOTE | 2019-04-12 11:25 | NUR ---
ASSUMED CARE AT 0700 THIS MORNING. PT. STARTED SAYING SHE IS GOING HOME TODAY WHEN THIS RN WAS ASSESSING HER. DURING MORNING MEETING SHE WAS PLEASANT AND COOPERATIVE. SHE KEPT ASKING WHERE SHE WAS GOING, HOME OR PLACEMENT. SHE WAS UPSET WHEN SHE FOUND OUT IT WAS A PLACEMENT SHE WAS GOING TO. SHE ATTEMPTED TO CALL ER DAUGHTER. HER DAUGHTER DID RETURN CALL AND TALK TO PT. SHE TOOK HER MORNING MEDICATIONS WITHOUT PROBLEMS NOTED.
[2019-04-12] MEDS ORDERED: NAMENDA 5 MG TAB5 M1 PO (11:32)
[2019-04-12] MEDS ORDERED: PROTONIX40 M1 PO (11:33)
[2019-04-12] MEDS ORDERED: VITAMIN B-12500 MCG PO (11:34)
[2019-04-12] MEDS ORDERED: SYNTHROID50 MCG PO (11:34)
--- NOTE | 2019-04-12 12:02 | NUR ---
SW sent d/c instructions, summary to [facility].
[2019-04-12 12:38] VITALS: BP 146/76
--- NOTE | 2019-04-12 12:44 | NUR ---
LUIS received a VM from Marianela Nguyen stating that pt called and said the psych doctor was sending her to another medical facility for 2 months. LUIS returned Marianela's call and explained that is not the case. Marianela said she spoke with the administrators at of who calmed her down and explained her mom's outburst is a part of the disease. She also confirmed transportation for her mom should arrive at any minute. No other needs for SW team to address at this time.
== END 2019-04-12 12:35 | DRG 56 ==
LOC: ER 12:34 → SBH 14:03 → EROBS 14:03 → SBH 14:35
PROVIDERS: Emergency Medicine Emergency Medical Services; Nurse Practitioner Acute Care; ADMIT Psychiatry & Neurology Psychiatry
DX: G30.9 Alzheimer's disease, unspecified (principal); G92 Toxic encephalopathy; F01.51 Vascular dementia, unspecified severity, with behavioral disturbance; F02.81 Dementia in other diseases classified elsewhere, unspecified severity, with behavioral disturbance; G89.29 Other chronic pain; K21.9 Gastro-esophageal reflux disease without esophagitis; M54.5 Low back pain; I10 Essential (primary) hypertension; G43.909 Migraine, unspecified, not intractable, without status migrainosus; M79.7 Fibromyalgia; F17.210 Nicotine dependence, cigarettes, uncomplicated; E03.9 Hypothyroidism, unspecified; E78.5 Hyperlipidemia, unspecified; Z79.899 Other long term (current) drug therapy; Z88.2 Allergy status to sulfonamides; Z90.710 Acquired absence of both cervix and uterus; Z91.09 Other allergy status, other than to drugs and biological substances; Z87.442 Personal history of urinary calculi; Z28.21 Immunization not carried out because of patient refusal
CPT/HCPCS: 10880